=== PATIENT | male | born 1950 | race Caucasian/White ===

== ENCOUNTER → 2023-10-09 17:56 | Outpatient (REF) | payer OTHER, SELFPAY | LOC: PAVMRI 17:56 | PROVIDERS: ATTENDING PHYSICIAN Orthopaedic Surgery; FAMILY PHYSICIAN Family Medicine | DX: M25.562 Pain in left knee (principal) | CPT/HCPCS: 73721 ==

== ENCOUNTER 2023-11-02 06:02 | Day surgery (SDC) | payer OTHER, SELFPAY ==
[2023-10-24 07:09] VITALS: BMI 30.9
[2023-10-24 08:40] LABS: Hematocrit 40.2 % (39.0-52.0); Hemoglobin 13.4 g/dL (13.0-18.0); Mean Corp Hgb Conc. 33.3 g/dL (33.0-37.0); Mean Corpuscular Hgb 29.7 pg (27.0-31.0); Mean Corpuscular Volume 89.1 fL (80.0-94.0); Platelet Count 177 10^3/uL (130-400); Red Blood Cell Count 4.51 10^6/uL (4.70-6.10); Red Cell Dist. Width 16.2 % (11.5-14.5); White Blood Cell Count 6.5 10^3/uL (4.8-10.8)
[2023-10-24 09:16] LABS: Blood Urea Nitrogen 15 mg/dl (9-20); Carbon Dioxide 27 mmol/L (22-30); Chloride 106 mmol/L (98-107); Estimated Creatinine Clearance 76 ml/min; Glucose 98 mg/dl (70-99); Potassium 4.3 mmol/L (3.5-5.1); Sodium 139 mmol/L (135-145); eGFR > 60.00
[2023-11-02] VITALS (9 sets, daily range): BP systolic 104–121; BP diastolic 68–83; BMI 30.9
[2023-11-02] MEDS: TYLENOL 1000 MG PO (06:27)
[2023-11-02] MEDS: NORMOSOL-R 1000 IV (06:28)
[2023-11-02] MEDS: CELEBREX 200 MG PO (06:28)
== END 2023-11-02 09:45 | disposition home or self-care (01) ==
LOC: SDS 06:02
PROVIDERS: ATTENDING PHYSICIAN Orthopaedic Surgery; FAMILY PHYSICIAN Family Medicine; OTHER PHYSICIAN Internal Medicine Cardiovascular Disease
DX: S83.232A Complex tear of medial meniscus, current injury, left knee, initial encounter (principal); X58.XXXA Exposure to other specified factors, initial encounter; M94.262 Chondromalacia, left knee
CPT/HCPCS: 29881; 36415; 80048; 85027

== ENCOUNTER → 2024-11-25 15:05 | Outpatient (REF) | payer OTHER, SELFPAY | LOC: RCS 15:05 | PROVIDERS: ATTENDING PHYSICIAN Ophthalmology; FAMILY PHYSICIAN Family Medicine; OTHER PHYSICIAN Internal Medicine Cardiovascular Disease | DX: H43.813 Vitreous degeneration, bilateral (principal) | CPT/HCPCS: 93005 ==

== ENCOUNTER → 2025-07-15 16:06 | Outpatient (REF) | payer OTHER, SELFPAY | LOC: RAD 16:06 | PROVIDERS: ATTENDING PHYSICIAN Family Medicine; FAMILY PHYSICIAN Family Medicine | DX: J18.9 Pneumonia, unspecified organism (principal) | CPT/HCPCS: 71046 ==